=== PATIENT | female | born 1970 | race Caucasian/White ===

== ENCOUNTER 2018-04-25 07:50 | Day surgery (SDC) | payer OTHER ==
[2018-04-23 11:44] LABS: HEMATOCRIT 37.1 % (36.0-48.0); HEMOGLOBIN 12.5 g/dL (12-16); MCH 30.3 pg (26.0-34.0); MCHC 33.7 g/dL (31.0-37.0); MEAN PLATELET VOLUME 9.9 fL (7.4-10.4); RBC 4.12 10x6/uL (4.00-5.40); RDW 13.6 % (11.5-14.5)
[2018-04-23 12:03] LABS: CALCIUM 9.3 mg/dL (8.5-10.1); CARBON DIOXIDE 26.6 mmol/L (21.0-32.0); CREATININE - SERUM 1.1 mg/dL (0.6-1.3); POTASSIUM - SERUM 4.6 mmol/L (3.5-5.1)
[~2018-04-25] VITALS: Ht 149.9 cm; Wt 83.0 kg
--- NOTE | ~2018-04-25 | OP ---
PATIENT NAME: JERRY SCANLON MEDICAL RECORD: [id number] :68 LOCATION:D.OPS ADMISSION DATE: SURGEON: EDIE RIVERA MD DATE OF OPERATION: 04/25/2018 PREOPERATIVE DIAGNOSES: 1. Sigmoid colon polyp, tattooed. 2. Angioectasias of the cecum. 3. History of anemia. 4. History of melena and hematochezia. POSTOPERATIVE DIAGNOSES: 1. Sigmoid colon polyp, tattooed. 2. Angioectasias of the cecum. 3. History of anemia. 4. History of melena and hematochezia. 5. Several minute sessile polyps of the rectum. 6. Angioectasia of the rectum times 1. PROCEDURES: 1. Total colonoscopy to cecum. 2. Polypectomy and then ablation of the polypoid base with the argon plasma hadoop administrator with right colon setting in the forced mode. 3. Ablation of angioectasias times 3. 4. Ablation of 11 minute polyps of the rectum without biopsies. SURGEON: Edie Rivera MD FISHERIES TECHNICAL OFFICER: None. BLOOD LOSS: Minimal. ANESTHESIA: General. COMPLICATIONS: None. The risks, possible complications, and alternatives to the procedure were explained to the patient. She elects to proceed. OPERATIVE COURSE: The patient was conveyed to the operating room electively on 04/25/2018. General anesthesia was induced by the anesthesia staff. The patient was placed in the [place] position. A digital rectal examination was performed. A colonoscope was inserted through the anus. It was easily advanced to the cecum. The prep was adequate. I slowly withdrew the endoscope. I irrigated and aspirated extensively. Two angioectasias of the cecum were identified and these were ablated utilizing the argon plasma hadoop administrator with the right colon setting in the forced mode. I slowly withdrew the endoscope. I irrigated and aspirated extensively. I dragged the folds. The pullback was greater than a 19-minute pullback. The tattooed polyp in the sigmoid colon was identified. Cold biopsies of the polyp were obtained. I then ablated the polypoid base utilizing the argon plasma hadoop administrator. I then withdrew into the rectum. Eleven minute polyps, which were sessile polyps, were ablated without biopsying these. There was angioectasia of the rectum as well and this was ablated with the argon plasma hadoop administrator as OPERATIVE REPORT [id number] JERRY SCANLON. A retroflexed view was obtained in the rectum. I then unretroflexed the scope and removed it under direct vision. I will see the patient in my office in 2-3 weeks. I will plan to return her surveillance endoscopic care back over to Dr. Cespedes for surveillance colonoscopies in the future. TRANSINT:[id number] Voice Confirmation ID: [id number] DOCUMENT ID: [id number] EDIE RIVERA MD at 1415 CC: JUSTUS TA MD and JUANY CESPEDES [id number] DICTATION DATE: 04/25/18 1418 ASSEMBLY PRESS OPERATOR: 04/25/18 1550 [facility] 04/25/18 [facility] [address] [place] [address]
--- NOTE | ~2018-04-25 | HP ---
PATIENT: JERRY SCANLON MEDICAL RECORD: [id number] ACCOUNT: [id number] LOCATION:DKayOPS : 68 ADMISSION DATE: 04/25/18 PCP: LIDA CMCABE MD HISTORY AND PHYSICAL EXAMINATION HISTORY OF PRESENT ILLNESS: The patient has undergone a colonoscopy by Dr. Cespedes, which revealed angioectasias of the cecum as well as a polyp of the sigmoid colon that was marked with Bridget Ink. I am going to plan for colonoscopy and polypectomy utilizing the argon plasma oil pipeline dispatcher. The risks, possible complications and alternatives to procedure were explained to the patient. She elects to proceed. PAST MEDICAL AND SURGICAL HISTORY: [id number] diabetes mellitus, obesity, some type of cancer as a child, hypertension. HOME MEDICINES: Please see the nursing list. PHYSICAL EXAMINATION: GENERAL: The patient does not appear acutely ill. She does not appear chronically ill. VITAL SIGNS: Reviewed. EARS: External ears appear normal. EYES: Extraocular movements are intact. NECK: Trachea midline. CHEST: No intercostal retractions. PULMONARY: Nonlabored, no stridor. ABDOMEN: Nontender. IMPRESSION: 1. Angioectasia of the cecum. 2. Sigmoid colon polyp. PLAN: Colonoscopy and polypectomy utilizing the argon plasma oil pipeline dispatcher. TRANSINT:[id number] Voice Confirmation ID: [id number] DOCUMENT ID: [id number] EDIE RIVERA MD at 2243 CC: JUSTUS TA MD and JUANY CESPEDES [id number] DICTATION DATE: 05/09/18 1312 CHANNEL SALES MANAGER: 05/09/[address] [facility] 04/25/18 [place] [id number]
[~2018-04-25 07:50] MED LIST: GLUCOPHAGE1000 MG PO; GLUCOTROL XL 5 M5 MG PO; LOSARTAN POTASS25 MG PO; LOVASTATIN20 MG PO; PEPCID AC20 MG PO
[2018-04-25 09:10] VITALS: Ht 149.9 cm; Wt 83.0 kg
[2018-04-25 09:16] LABS: HCG URINE NEGATIVE (NEGATIVE)
== END 2018-04-25 16:20 | disposition home or self-care (01) ==
LOC: D.OPS 07:50 → D.PAN 10:00 → D.OPS 10:15 → D.PAN 10:15 → D.OPS 16:20
PROVIDERS: Anesthesiology; Surgery
DX: K63.5 Polyp of colon (principal); K62.1 Rectal polyp